=== PATIENT | female | born 1970 | race Caucasian/White ===

== ENCOUNTER 2020-03-04 20:58 | Emergency (ER) | payer OTHER, SELFPAY ==
[~2020-03-04] VITALS: Ht 160 cm; Wt 86.2 kg
[2020-03-04 21:00] VITALS: Ht 160 cm; Wt 86.2 kg
[2020-03-04 22:07] VITALS: BP 140/94
== END 2020-03-04 22:07 | disposition home or self-care (01) ==
LOC: ED 20:58
DX: R05 Cough (principal); M79.10 Myalgia, unspecified site; R43.9 Unspecified disturbances of smell and taste; Z20.828 Contact with and (suspected) exposure to other viral communicable diseases